=== PATIENT | female | born 1980 | race African-American/Black ===

== ENCOUNTER 2025-01-08 20:59 | Emergency (ER) | payer BC, OTHER ==
[2025-01-08 21:22] VITALS: BP 123/74; PULSE 92; RESP 20; TEMP 98.8; BMI 38.7
[2025-01-08] MEDS ORDERED: DEXAMETHASONE SOD PHOSPHATE 10 MG/1 ML VIAL ONE (22:25)
[2025-01-08] MEDS ORDERED: IBUPROFEN 600 MG TABLET (FP) PO ONE (22:25)
[2025-01-08] MEDS ORDERED: ACETAMINOPHEN 325 MG TABLET (FP) ONE (22:25)
[2025-01-08] MEDS: DEXAMETHASONE SOD PHOSPHATE 10 MG/1 ML VIAL IM ONE (22:34)
[2025-01-08] MEDS: IBUPROFEN 600 MG TABLET (FP) PO ONE (22:34)
[2025-01-08] MEDS: ACETAMINOPHEN 325 MG TABLET (FP) PO ONE (22:34)
== END 2025-01-08 23:12 | disposition home or self-care (01) ==
LOC: JERFT 20:59 → JER 20:59
PROC: 3E023GC Introduction of Other Therapeutic Substance into Muscle, Percutaneous Approach (ICD-10-PCS; principal; 2025-01-08)
DX: J02.9 Acute pharyngitis, unspecified (principal); J06.9 Acute upper respiratory infection, unspecified
CPT/HCPCS: 0241U-QW; 87651; 99284-25; J1100

== ENCOUNTER 2025-01-19 07:03 | Emergency (ER) | payer BC ==
[2025-01-19 07:11] VITALS: BP 125/79; PULSE 77; RESP 20; TEMP 98.6; BMI 29.7
[2025-01-19] MEDS ORDERED: KETOROLAC TROMETHAMINE 30 MG/1 ML VIAL ONE (07:44)
[2025-01-19] MEDS: KETOROLAC TROMETHAMINE 30 MG/1 ML VIAL IM ONE (07:51)
[2025-01-19 12:45] LABS: HCV DIAGNOSTIC IN-HOUSE W/RFLX NON-REACTIVE (NONREACTIVE); HIV INTERPRETATION NEGATIVE (NEGATIVE)
== END 2025-01-19 08:14 | disposition home or self-care (01) ==
LOC: JERFT 07:03
PROC: 3E0233Z Introduction of Anti-inflammatory into Muscle, Percutaneous Approach (ICD-10-PCS; principal; 2025-01-19)
DX: J02.9 Acute pharyngitis, unspecified (principal); J06.9 Acute upper respiratory infection, unspecified; R09.81 Nasal congestion; R05.9 Cough, unspecified
CPT/HCPCS: 36415; 86803; 87389; 99284-25